=== PATIENT | female | born 1995 | race Two or more races ===

== ENCOUNTER 2018-02-14 01:15 | Emergency (ER) | payer SELFPAY ==
[~2018-02-14] VITALS: Ht 162.6 cm; Wt 55.0 kg
[2018-02-14 03:20] VITALS: BP 113/71
== END 2018-02-14 03:21 | disposition home or self-care (01) ==
LOC: ER 01:15
DX: F10.129 Alcohol abuse with intoxication, unspecified (principal)
CPT/HCPCS: 99283